=== PATIENT | male | born 1995 | race Caucasian/White ===

== ENCOUNTER 2023-06-10 14:49 | Emergency (ER) | payer BC ==
[2023-06-10] MEDS ORDERED: Lidocaine 1% 10 ML MDV INJECT ONE (15:22)
[2023-06-10] MEDS ORDERED: Diphtheria,Pertussis(Acell),Tetanus Vaccine 0.5 ML Syringe IM ONE (15:22)
== END 2023-06-10 16:21 | disposition home or self-care (01) ==
LOC: JD.ED 14:49
DX: S61.210A Laceration without foreign body of right index finger without damage to nail, initial encounter (principal); S61.212A Laceration without foreign body of right middle finger without damage to nail, initial encounter; W45.8XXA Other foreign body or object entering through skin, initial encounter
CPT/HCPCS: 73130-26-RT; 73130-RT; 99282; 99283